=== PATIENT | female | born 1955 | race Caucasian/White ===

== ENCOUNTER 2016-12-06 22:39 | Emergency (ER) | payer OTHER ==
[~2016-12-06] VITALS: Ht 165.1 cm; Wt 78.3 kg
[2016-12-06] MEDS ORDERED: MORPHINE SULFATE 4 MG/ML, 1ML ONE (23:22)
[2016-12-06] MEDS ORDERED: ONDANSETRON 2MG/ML, 2ML ONE (23:22)
[2016-12-06 23:34] LABS: ASPARTATE AMINO TRANSFERASE 19 U/L (15-37); BLOOD UREA NITROGEN 13 mg/dL (7-18)
[2016-12-06] MEDS: SODIUM CHLORIDE 0.9% 1,000ML IV ONE (23:34)
[2016-12-06] MEDS: SODIUM CHLORIDE FLUSH 10ML SYR IVF ONE (23:34)
[2016-12-06] MEDS: MORPHINE SULFATE 4 MG/ML, 1ML IVPush PRN (23:35)
[2016-12-06] MEDS: ONDANSETRON 2MG/ML, 2ML IVPush ONE (23:35)
[2016-12-07] MEDS: ONDANSETRON 2MG/ML, 2ML IVPush ONE (00:14)
[2016-12-07] MEDS: MORPHINE SULFATE 4 MG/ML, 1ML IVPush PRN ×2 (00:14→01:27)
[2016-12-07] MEDS: SODIUM CHLORIDE FLUSH 10ML SYR IVF ONE (00:15)
[2016-12-07] MEDS: SODIUM CHLORIDE 0.9% 1,000ML IV ONE (00:15)
[2016-12-07] MEDS ORDERED: ATOR10TA9 PO (00:17)
[2016-12-07] MEDS ORDERED: MORPHINE SULFATE 4 MG/ML, 1ML ONE (01:26)
[2016-12-07] MEDS ORDERED: ONDANSETRON 2MG/ML, 2ML ONE (01:26)
[2016-12-07] MEDS ORDERED: ONDANSETRON 2MG/ML, 2ML IVPush ONE ×2 (01:30)
[2016-12-07 02:04] VITALS: BP 131/75
== END 2016-12-07 02:20 | disposition home or self-care (01) ==
LOC: ED 23:59
DX: R10.12 Left upper quadrant pain (principal); R11.2 Nausea with vomiting, unspecified
CPT/HCPCS: 36415; 74176; 80053; 81003; 85025; 93005; 96361; 96374; 96375; 96376; 99285; J2405; J7030

== ENCOUNTER 2016-12-07 14:35 | Emergency (ER) | payer OTHER ==
[~2016-12-07] VITALS: Ht 167.6 cm; Wt 78.4 kg
[~2016-12-07 14:35] MED LIST: ATOR10TA9 PO
[2016-12-07 16:13] LABS: ASPARTATE AMINO TRANSFERASE 17 U/L (15-37); BLOOD UREA NITROGEN 13 mg/dL (7-18)
[2016-12-07 17:54] VITALS: BP 109/65
== END 2016-12-07 18:26 | disposition home or self-care (01) ==
LOC: ED 18:20
DX: R10.9 Unspecified abdominal pain (principal); E78.5 Hyperlipidemia, unspecified
CPT/HCPCS: 36415; 76770; 80053; 83690; 85025; 99285

== ENCOUNTER 2019-02-19 12:48 | Outpatient (CLI) | payer OTHER ==
[~2019-02-19 12:48] MED LIST changes: +REGADENOSON 0.4 MG/5 ML SYRINGE ONE
== END 2019-02-19 23:59 | disposition home or self-care (01) ==
LOC: CFH 12:48
PROVIDERS: ATTEND Internal Medicine
DX: R07.9 Chest pain, unspecified (principal)
CPT/HCPCS: 78452; 93017; A9502; J2785